=== PATIENT | female | born 1945 | race Caucasian/White ===

== ENCOUNTER 2017-02-02 20:09 | Emergency (ER) | payer MEDICARE ==
[~2017-02-02] VITALS: Ht 152.4 cm; Wt 97.8 kg
[~2017-02-02 20:09] MED LIST: ADVAIR DISK1 IN; ADVAIR HF1 IN; ADVAIR HFA IN; AZITHROMYCIN500 MG OR; B12-ACTIVE1 MG PO; CIPROFLOXACN500 MG PO; DILAUDID 2MG2 MG/TA1 PO; DIOVAN160 MG PO; DUONEB IN; HYDROMET1 ML OR; IMODIUM2 MG PO; KRILL OIL300 MG PO; LOSARTAN POT50 MG PO; MACRODANTIN100 MG PO; MEDDOSEPAK PO; METFORMIN500 MG PO; MULT VITAMI1 PO; NAPROXEN500 MG PO; ONE TOUCH ULTRA 50 XX; ONE TOUCH ULTRA LANC XX; PREDNISONE1 MG OR; PREDNISONE20 MG PO; SPIRIVA HANDIHALER INHW/SPAC; TESSALON PER100 MG PO; TESSALON PERLE100 MG PO; ZITHROMAX250 MG PO; ZITHROMAX500 MG PO; ZPAK PO; [UNRECOGNIZED DRUG - SUPPLY] XX; [UNRECOGNIZED DRUG - SUPPLY] XX
[2017-02-02] MEDS ORDERED: METFORMIN500 M1 PO (20:30)
[2017-02-02] MEDS ORDERED: MACROBID100 MG PO (20:50)
[2017-02-02 21:03] LABS: HEMATOCRIT 37.9 % (37.0-47.0); HEMOGLOBIN 12.8 g/dl (12.0-16.0); IMMATURE GRANULOCYTES 0.4 % (0.0-1.0); MEAN CELL VOLUME 97.7 fL CALC (80.0-100.0); MEAN CORPUSCULAR HGB CONC 33.8 g/L CALC (32.0-36.0); NEUT# 5.94 thou/uL (2.00-7.15); RED BLOOD COUNT 3.88 mill/uL (4.20-5.60); RED CELL DISTRI WIDTH 12.2 % (11.5-15.5)
[2017-02-02 21:07] LABS: URINE BILIRUBIN - DIPSTICK NEGATIVE (NEGATIVE); URINE BLOOD DIPSTICK TRACE-INTACT (NEGATIVE); URINE CLARITY CLEAR; URINE COLOR YELLOW; URINE GLUCOSE - DIPSTICK 250 mg/dL (NEGATIVE); URINE KETONE NEGATIVE (NEGATIVE); URINE LEUK ESTERASE NEGATIVE (NEGATIVE); URINE NITRITE - DIPSTICK NEGATIVE (Negative); URINE PH 5.5 (4.5-8.0); URINE PROTEIN - DIPSTICK TRACE mg/dL (NEG-TRACE); URINE SPECIFIC GRAVITY 1.025; URINE UROBILINOGEN - DIPSTICK 0.2 E.U./dL (0.2)
[2017-02-02 21:29] LABS: ALBUMIN 3.8 g/dL (3.2-5.0); ALKALINE PHOSPHATASE 63 u/l (38-126); ANION GAP 16 (6-22 (CALC)); BILIRUBIN, TOTAL 0.4 mg/dL (0.0-1.4); BUN 16 mg/dL (8-23); BUN/CREATININE RATIO 20 (12-20 (CALC)); CALCIUM 9.8 mg/dL (8.4-10.2); CARBON DIOXIDE 25 mmol/l (22-30); CHLORIDE 101 mmol/l (95-108); CREATININE 0.8 mg/dL (0.5-1.0); GFR > 60 ML/MIN (>=60 (CALC)); GFR FOR AFR.AMER. > 60 ML/MIN (>=60 (CALC)); GLUCOSE 245 mg/dL (82-115); POTASSIUM 4.1 mmol/l (3.5-5.1); SGOT/AST 29 u/l (9-36); SGPT/ALT 49 u/l (11-66); SODIUM 138 mmol/l (137-146); TOTAL PROTEIN 6.4 g/dL (6.3-8.2)
[2017-02-02 22:42] VITALS: BP 153/66
== END 2017-02-02 22:47 | disposition home or self-care (01) ==
LOC: ED 20:09
PROVIDERS: Emergency Medicine
DX: R50.82 Postprocedural fever (principal); I10 Essential (primary) hypertension; E11.9 Type 2 diabetes mellitus without complications

== ENCOUNTER 2018-10-25 21:53 | Emergency (ER) | payer MEDICARE ==
[~2018-10-25] VITALS: Ht 154.9 cm; Wt 92.7 kg
[~2018-10-25 21:53] MED LIST changes: +MACROBID100 MG PO; +METFORMIN500 M1 PO
[2018-10-25 22:25] LABS: HEMATOCRIT 41.2 % (37.0-47.0); HEMOGLOBIN 13.9 g/dl (12.0-16.0); IMMATURE GRANULOCYTES 0.3 % (0.0-5.0); MEAN CELL VOLUME 99.3 fL CALC (80.0-100.0); MEAN CORPUSCULAR HGB 33.5 pG CALC (26.0-32.0); MEAN CORPUSCULAR HGB CONC 33.7 g/L CALC (32.0-36.0); NEUT# 3.53 thou/uL (2.00-7.15); RED BLOOD COUNT 4.15 mill/uL (4.20-5.60); RED CELL DISTRI WIDTH 12.3 % (11.5-15.5)
[2018-10-25] MEDS ORDERED: FEMARA2.5 MG PO (22:27)
[2018-10-25] MEDS ORDERED: LOSARTAN POT50 MG PO (22:27)
[2018-10-25] MEDS ORDERED: METFORMIN HCL850 MG PO (22:28)
[2018-10-25] MEDS ORDERED: FLONASE AL50 MCG/ACT IN (22:29)
[2018-10-25] MEDS ORDERED: DUONEB IN (22:29)
[2018-10-25 22:46] LABS: ALBUMIN 4.5 g/dL (3.2-5.0); ALKALINE PHOSPHATASE 71 u/l (38-126); ANION GAP 15 (6-22 (CALC)); BILIRUBIN, TOTAL 0.5 mg/dL (0.0-1.4); BUN 14 mg/dL (8-23); BUN/CREATININE RATIO 19 (12-20 (CALC)); CARBON DIOXIDE 25 mmol/l (22-30); CHLORIDE 102 mmol/l (95-108); CREATININE 0.7 mg/dL (0.5-1.0); GFR > 60 ML/MIN (>=60 (CALC)); GFR FOR AFR.AMER. > 60 ML/MIN (>=60 (CALC)); POTASSIUM 3.9 mmol/l (3.5-5.1); SGOT/AST 41 u/l (9-36); SODIUM 139 mmol/l (137-146); TOTAL PROTEIN 7.6 g/dL (6.3-8.2)
[2018-10-25 22:59] LABS: MYOGLOBIN 34 ng/mL (0 - 62)
[2018-10-25 23:08] LABS: URINE BILIRUBIN - DIPSTICK NEGATIVE (NEGATIVE); URINE BLOOD DIPSTICK NEGATIVE (NEGATIVE); URINE COLOR YELLOW; URINE GLUCOSE - DIPSTICK NEGATIVE (NEGATIVE); URINE KETONE NEGATIVE (NEGATIVE); URINE LEUK ESTERASE NEGATIVE (NEGATIVE); URINE NITRITE - DIPSTICK NEGATIVE (Negative); URINE PROTEIN - DIPSTICK NEGATIVE (NEG-TRACE); URINE SPECIFIC GRAVITY 1.015; URINE UROBILINOGEN - DIPSTICK 0.2 E.U./dL (0.2)
[2018-10-26 00:37] VITALS: BP 175/77
== END 2018-10-26 00:45 | disposition home or self-care (01) ==
LOC: ED 21:53
PROVIDERS: Emergency Medicine
DX: I10 Essential (primary) hypertension (principal); R42 Dizziness and giddiness; R51 Headache; R50.9 Fever, unspecified; H53.8 Other visual disturbances

== ENCOUNTER → 2018-11-18 | Outpatient (REF) | payer MEDICARE ==
[~2018-11-18] MED LIST changes: +FEMARA2.5 MG PO; +FLONASE AL50 MCG/ACT IN; +METFORMIN HCL850 MG PO
[2018-11-18 11:14] LABS: HEMATOCRIT 39.1 % (37.0-47.0); HEMOGLOBIN 12.9 g/dl (12.0-16.0); MEAN CORPUSCULAR HGB 33.3 pG CALC (26.0-32.0); RED BLOOD COUNT 3.87 mill/uL (4.20-5.60); RED CELL DISTRI WIDTH 12.8 % (11.5-15.5)
[2018-11-18 11:33] LABS: ALBUMIN 4.2 g/dL (3.2-5.0); ALKALINE PHOSPHATASE 65 u/l (38-126); ANION GAP 14 (6-22 (CALC)); BILIRUBIN, TOTAL 0.5 mg/dL (0.0-1.4); BUN 14 mg/dL (8-23); BUN/CREATININE RATIO 20 (12-20 (CALC)); CALCULATED LDLCHOLESTEROL 104 mg/dL (62-129 (CALC)); CARBON DIOXIDE 27 mmol/l (22-30); CHLORIDE 104 mmol/l (95-108); CHOLESTEROL HDL RATIO 2.9 (<4.4 (CALC)); CREATININE 0.7 mg/dL (0.5-1.0); GFR > 60 ML/MIN (>=60 (CALC)); GFR FOR AFR.AMER. > 60 ML/MIN (>=60 (CALC)); HDL CHOLESTEROL 69 mg/dL (>=40); POTASSIUM 4.4 mmol/l (3.5-5.1); SGOT/AST 30 u/l (9-36); SODIUM 140 mmol/l (137-146); TOTAL CHOLESTEROL 200 mg/dl (0-199); TOTAL PROTEIN 6.9 g/dL (6.3-8.2); TOTAL TRIGLYCERIDES 131 mg/dl (30-149); VLDL CHOLESTROL 26 mg/dl (0-48 (CALC))
[2018-11-18 12:05] LABS: TSH, 3RD GENERATION 0.91 uIU/mL (0.47 - 4.68)
== END | disposition home or self-care (01) ==
LOC: LAB 10:11
PROVIDERS: ATTEND Nurse Practitioner
DX: E11.9 Type 2 diabetes mellitus without complications (principal); I10 Essential (primary) hypertension

== ENCOUNTER → 2018-11-21 | Outpatient (REF) | payer MEDICARE | END | disposition home or self-care (01) | LOC: DI 15:13 | PROVIDERS: ATTEND Orthopaedic Surgery | DX: M25.561 Pain in right knee (principal); M17.11 Unilateral primary osteoarthritis, right knee ==

== ENCOUNTER 2019-07-11 16:01 | Observation (INO) | payer MEDICARE ==
[~2019-07-11] VITALS: Ht 154.9 cm; Wt 90.7 kg
[2019-07-11] MEDS ORDERED: PROAIR HFA108 MCG/AC IN (17:19)
[2019-07-11] MEDS ORDERED: NORVASC5 M1 PO (17:20)
[2019-07-11 17:27] LABS: HEMATOCRIT 42.7 % (37.0-47.0); HEMOGLOBIN 14.1 g/dl (12.0-16.0); IMMATURE GRANULOCYTES 0.2 % (0.0-5.0); MEAN CELL VOLUME 100.5 fL CALC (80.0-100.0); MEAN CORPUSCULAR HGB 33.2 pG CALC (26.0-32.0); NEUT# 3.81 thou/uL (2.00-7.15); RED BLOOD COUNT 4.25 mill/uL (4.20-5.60); RED CELL DISTRI WIDTH 12.8 % (11.5-15.5)
[2019-07-11 17:51] LABS: ANION GAP 13 (6-22 (CALC)); BUN 11 mg/dL (8-23); BUN/CREATININE RATIO 16 (12-20 (CALC)); CARBON DIOXIDE 27 mmol/l (22-30); CHLORIDE 103 mmol/l (95-108); CREATININE 0.7 mg/dL (0.5-1.0); GFR > 60 ML/MIN (>=60 (CALC)); GFR FOR AFR.AMER. > 60 ML/MIN (>=60 (CALC)); POTASSIUM 4.2 mmol/l (3.5-5.1); SODIUM 139 mmol/l (137-146)
[2019-07-11 19:55] LABS: URINE BILIRUBIN - DIPSTICK NEGATIVE (NEGATIVE); URINE BLOOD DIPSTICK NEGATIVE (NEGATIVE); URINE COLOR YELLOW; URINE GLUCOSE - DIPSTICK 100 mg/dL (NEGATIVE); URINE KETONE NEGATIVE (NEGATIVE); URINE LEUK ESTERASE NEGATIVE (NEGATIVE); URINE NITRITE - DIPSTICK NEGATIVE (Negative); URINE PROTEIN - DIPSTICK NEGATIVE (NEG-TRACE); URINE SPECIFIC GRAVITY 1.025; URINE UROBILINOGEN - DIPSTICK 0.2 E.U./dL (0.2)
[2019-07-11 20:10] VITALS: BP 178/73
[2019-07-12 01:15] VITALS: BP 159/78
[2019-07-12 04:15] VITALS: BP 113/63
[2019-07-12 08:55] VITALS: BP 113/63
[2019-07-12] MEDS ORDERED: OMNICEF300 MG PO (09:02)
[2019-07-12] MEDS ORDERED: PREDNISONE10 MG PO (09:02)
[2019-07-12] MEDS ORDERED: ZITHROMAX500 MG PO (09:10)
== END 2019-07-12 12:50 | disposition home or self-care (01) ==
LOC: ED 16:01 → ED-I 17:51 → ED 19:24 → ICU 19:25
PROVIDERS: Family Medicine; ADMIT Internal Medicine; ATTEND Internal Medicine
DX: J44.1 Chronic obstructive pulmonary disease with (acute) exacerbation (principal); J44.0 Chronic obstructive pulmonary disease with (acute) lower respiratory infection; J18.9 Pneumonia, unspecified organism; E11.9 Type 2 diabetes mellitus without complications; I10 Essential (primary) hypertension; Z79.84 Long term (current) use of oral hypoglycemic drugs
CPT/HCPCS: J1650

== ENCOUNTER 2019-08-10 17:08 | Emergency (ER) | payer MEDICARE ==
[~2019-08-10] VITALS: Ht 154.9 cm; Wt 81.0 kg
[~2019-08-10 17:08] MED LIST changes: +NORVASC5 M1 PO; +OMNICEF300 MG PO; +PREDNISONE10 MG PO; +PROAIR HFA108 MCG/AC IN
[2019-08-10 18:57] LABS: HEMATOCRIT 37.4 % (37.0-47.0); HEMOGLOBIN 12.5 g/dl (12.0-16.0); IMMATURE GRANULOCYTES 0.3 % (0.0-5.0); MEAN CORPUSCULAR HGB 33.4 pG CALC (26.0-32.0); MEAN CORPUSCULAR HGB CONC 33.4 g/L CALC (32.0-36.0); NEUT# 3.16 thou/uL (2.00-7.15); RED BLOOD COUNT 3.74 mill/uL (4.20-5.60); RED CELL DISTRI WIDTH 12.9 % (11.5-15.5)
[2019-08-10 19:09] LABS: ANION GAP 13 (6-22 (CALC)); BUN 12 mg/dL (8-23); BUN/CREATININE RATIO 23 (12-20 (CALC)); CARBON DIOXIDE 25 mmol/l (22-30); CHLORIDE 105 mmol/l (95-108); CREATININE 0.5 mg/dL (0.5-1.0); GFR > 60 ML/MIN (>=60 (CALC)); GFR FOR AFR.AMER. > 60 ML/MIN (>=60 (CALC)); POTASSIUM 3.9 mmol/l (3.5-5.1); SODIUM 139 mmol/l (137-146)
[2019-08-10 19:13] LABS: ACT PARTIAL THROMBO TIME 26.7 SECONDS (20.0-32.5); PROTHROMBIN TIME 10.7 SECONDS (9.0-12.5)
[2019-08-10 19:56] VITALS: BP 168/86
== END 2019-08-10 19:55 | disposition home or self-care (01) ==
LOC: ED 17:08
PROVIDERS: Family Medicine
DX: I87.2 Venous insufficiency (chronic) (peripheral) (principal); E11.9 Type 2 diabetes mellitus without complications; I10 Essential (primary) hypertension; J44.9 Chronic obstructive pulmonary disease, unspecified; Z79.84 Long term (current) use of oral hypoglycemic drugs

== ENCOUNTER 2021-03-17 13:05 | Observation (INO) | payer MEDICARE ==
[~2021-03-17] VITALS: Ht 154.9 cm; Wt 94.0 kg
--- NOTE | 2021-03-17 13:07 | NUR ---
PT TO ROOM VIa stretcher for bedside triage.
--- NOTE | 2021-03-17 13:12 | NUR ---
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 EKG COMPLETED AND MLP NOTIFIED.
[2021-03-17 14:23] LABS: HEMATOCRIT 43.6 % (37.0-47.0); HEMOGLOBIN 14.4 g/dl (12.0-16.0); IMMATURE GRANULOCYTES 0.4 % (0.0-5.0); MEAN CELL VOLUME 99.1 fL CALC (80.0-100.0); MEAN CORPUSCULAR HGB 32.7 pG CALC (26.0-32.0); NEUT# 4.23 thou/uL (2.00-7.15); RED BLOOD COUNT 4.4 mill/uL (4.20-5.60); RED CELL DISTRI WIDTH 12.4 % (11.5-15.5)
[2021-03-17] MEDS ORDERED: METFORMIN500 M2 PO (14:26)
[2021-03-17] MEDS ORDERED: ESCITALOPRAM OX10 MG PO (14:27)
[2021-03-17] MEDS ORDERED: FLONASE AL50 MCG/ACT NAB (14:29)
[2021-03-17 14:37] LABS: ALBUMIN 3.9 g/dL (3.2-5.0); ALKALINE PHOSPHATASE 74 u/l (38-126); AMYLASE 57 u/l (30-110); ANION GAP 16 (6-22 (CALC)); BILIRUBIN, TOTAL 0.8 mg/dL (0.0-1.4); BUN 18 mg/dL (8-23); BUN/CREATININE RATIO 19 (12-20 (CALC)); CARBON DIOXIDE 25 mmol/l (22-30); CHLORIDE 97 mmol/l (95-108); CREATININE 0.9 mg/dL (0.5-1.0); GFR > 60 ML/MIN (>=60 (CALC)); GFR FOR AFR.AMER. > 60 ML/MIN (>=60 (CALC)); LIPASE 77 u/l (23-300); POTASSIUM 3.8 mmol/l (3.5-5.1); SODIUM 134 mmol/l (137-146)
[2021-03-17 14:39] LABS: ACT PARTIAL THROMBO TIME 26.5 SECONDS (20.0-32.5); INTERNATIONAL NORMALIZED RATIO 1.1 RATIO (0.7-1.3); PROTHROMBIN TIME 11.2 SECONDS (9.0-12.5)
[2021-03-17 14:51] LABS: SGOT/AST 64 u/l (9-36)
[2021-03-17 15:21] LABS: URINE BLOOD DIPSTICK TRACE-INTACT (NEGATIVE); URINE COLOR YELLOW; URINE GLUCOSE - DIPSTICK NEGATIVE (NEGATIVE); URINE KETONE TRACE mg/dL (NEGATIVE); URINE LEUK ESTERASE TRACE (NEGATIVE); URINE PH 5.5 (4.5-8.0); URINE PROTEIN - DIPSTICK 100 mg/dL (NEG-TRACE); URINE SPECIFIC GRAVITY 1.025; URINE UROBILINOGEN - DIPSTICK 0.2 E.U./dL (0.2)
[2021-03-17 15:22] LABS: URINE BILIRUBIN - DIPSTICK SMALL (NEGATIVE)
[2021-03-17 15:23] LABS: URINE NITRITE - DIPSTICK NEGATIVE (Negative)
--- NOTE | 2021-03-17 15:26 | NUR ---
PT RESTING IN BED, HR AFIB ON MONITOR
[2021-03-17 15:29] LABS: URINE RBC 0-2 RBC/hpf (0-5); URINE SQUAMOUS EPITHELIAL CELL FEW EPI/hpf (0-FEW)
--- NOTE | 2021-03-17 16:45 | NUR ---
PT ANXIOUS, DOES NOT WANT TO STAY IN THE HOSPITAL, AGGRAVATED. COMFORTED PT AND VERBALIZED WHY SHE NEEDED TO STAY, PT AGREES AND UNDERSTANDS
--- NOTE | 2021-03-17 20:06 | NUR ---
PT VERY ANXIOUS AND AGGITATED, WANTS TO LEAVE, JL CEDEÑO RN NOTIFIED AND IN TO TALK TO PT
--- NOTE | 2021-03-17 20:20 | NUR ---
PT CAME BACK AND DECIDED TO STAY IN ICU TONIGHT
--- NOTE | 2021-03-17 20:25 | NUR ---
75 yr old white female admitted to icu 5 per wc from er. amb self to bathroom then to bed. no c/o n/v or diarrhea. bed weight obtained. 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 #20 lac started lac x1 attempt per delbert laguerre rn. history obtained per pt & er record. oriented to room. fall precautions initiated.
[2021-03-17 20:30] VITALS: BP 110/51
[2021-03-17 20:45] VITALS: BP 99/56
[2021-03-17 21:00] VITALS: BP 107/61
--- NOTE | 2021-03-17 21:00 | NUR ---
supper meal given per request.
[2021-03-17 21:15] VITALS: BP 90/42
[2021-03-17 21:30] VITALS: BP 117/56
[2021-03-17 22:00] VITALS: BP 111/54
--- NOTE | 2021-03-17 22:00 | NUR ---
watching tv. property assessment monitor shows a fib hr 116.
[2021-03-18] VITALS (8 sets, daily range): BP systolic 104–142; BP diastolic 51–70
--- NOTE | 2021-03-18 00:13 | NUR ---
lab here. blood drawn.
--- NOTE | 2021-03-18 02:00 | NUR ---
resting quietly. resps even & unlabored. no apparent distress. dynamo tender shows a fib hr 84.
--- NOTE | 2021-03-18 04:00 | NUR ---
eyes closed. no distress. quality assurance monitor body shows a fib hr 96.
--- NOTE | 2021-03-18 05:25 | NUR ---
lab here. blood drawn.
[2021-03-18 05:43] LABS: HEMATOCRIT 39.7 % (37.0-47.0); HEMOGLOBIN 13.2 g/dl (12.0-16.0); MEAN CORPUSCULAR HGB 32.9 pG CALC (26.0-32.0); MEAN CORPUSCULAR HGB CONC 33.2 g/dL CAL (32.0-36.0); RED BLOOD COUNT 4.01 mill/uL (4.20-5.60); RED CELL DISTRI WIDTH 12.6 % (11.5-15.5)
[2021-03-18 05:58] LABS: ANION GAP 12 (6-22 (CALC)); BUN 17 mg/dL (8-23); BUN/CREATININE RATIO 22 (12-20 (CALC)); CALCULATED LDLCHOLESTEROL 92 mg/dL (62-129 (CALC)); CARBON DIOXIDE 23 mmol/l (22-30); CHLORIDE 103 mmol/l (95-108); CHOLESTEROL HDL RATIO 4.9 (<4.4 (CALC)); CREATININE 0.8 mg/dL (0.5-1.0); GFR > 60 ML/MIN (>=60 (CALC)); GFR FOR AFR.AMER. > 60 ML/MIN (>=60 (CALC)); HDL CHOLESTEROL 32 mg/dL (>=40); MAGNESIUM 1.8 mg/dL (1.6-2.3); POTASSIUM 3.7 mmol/l (3.5-5.1); SODIUM 135 mmol/l (137-146); TOTAL CHOLESTEROL 154 mg/dl (0-199); TOTAL TRIGLYCERIDES 149 mg/dl (30-149); VLDL CHOLESTROL 30 mg/dl (0-48 (CALC))
--- NOTE | 2021-03-18 07:34 | NUR ---
PT SEEN ALERT, ORIENTED X 3. MONITOR CONTINUES TO SHOW AFIB, RATE 85-115. PT DENIES HISTORY OF AFIB. BREAKFAST TRAY SERVED. FAN PROVIDED PT WOKE UP SWEATING. NO DISTRESS, NO N/V/D.
--- NOTE | 2021-03-18 10:00 | NUR ---
PT GOWN CHANGED PER SWEATING. PT IS AMBULATORY TO BR WITH ASSIST UNHOOKING MONITORS. PT USES CANE, RESULTS IN STEADY GAIT. DR WANG HAS SEEN PT, NEW ORDERS RECEIVED.
--- NOTE | 2021-03-18 16:07 | NUR ---
PT'S LARRY AT BEDSIDE AT THIS TIME FOR VISIT. PT REMAINS ATRIAL FIBRILLATION WITH BETTER CONTROL OF RATE NOW, 80-100.
--- NOTE | 2021-03-18 17:27 | NUR ---
PT CONTINUES AMBULATORY IN ROOM, USES BR PRN. PT UP IN CHAIR AT THIS TIME EATING DINNER. NO COMPLAINTS, NO DISTRESS.
--- NOTE | 2021-03-18 20:00 | NUR ---
sitting in bedside chair using cell phone. no c/o. telemetry monitor shows a fib pvcs hr 84. #20 lac saline lock. po fluids taken well. voids per bathroom. fall precautions cont.
--- NOTE | 2021-03-18 22:00 | NUR ---
amb self to br then to bed. navneet well. no distress.
[2021-03-19 00:01] VITALS: BP 91/49
--- NOTE | 2021-03-19 00:01 | NUR ---
eyes closed. no distress. 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
[2021-03-19 02:00] VITALS: BP 93/51
--- NOTE | 2021-03-19 02:00 | NUR ---
resting quietly. resps even & unlabored. cardiac moitor shows a fib pvcs hr 78.
[2021-03-19 04:00] VITALS: BP 98/54
--- NOTE | 2021-03-19 04:00 | NUR ---
eyes closed. no distress. monitor tech shows a fib pvcs hr 80.
--- NOTE | 2021-03-19 05:54 | NUR ---
lab here. blood drawn.
[2021-03-19 06:04] LABS: HEMATOCRIT 39.9 % (37.0-47.0); HEMOGLOBIN 13.1 g/dl (12.0-16.0); MEAN CELL VOLUME 99.8 fL CALC (80.0-100.0); MEAN CORPUSCULAR HGB 32.8 pG CALC (26.0-32.0); MEAN CORPUSCULAR HGB CONC 32.8 g/dL CAL (32.0-36.0); RED CELL DISTRI WIDTH 12.8 % (11.5-15.5)
[2021-03-19 06:21] LABS: ANION GAP 11 (6-22 (CALC)); BUN 19 mg/dL (8-23); BUN/CREATININE RATIO 27 (12-20 (CALC)); CARBON DIOXIDE 27 mmol/l (22-30); CHLORIDE 103 mmol/l (95-108); CREATININE 0.7 mg/dL (0.5-1.0); GFR > 60 ML/MIN (>=60 (CALC)); GFR FOR AFR.AMER. > 60 ML/MIN (>=60 (CALC)); MAGNESIUM 1.7 mg/dL (1.6-2.3); POTASSIUM 3.8 mmol/l (3.5-5.1); SODIUM 137 mmol/l (137-146)
--- NOTE | 2021-03-19 08:00 | NUR ---
PT SEEN AWAKE, ALERT, ORIENTED X 3. LUNGS CLEAR, RA. MONITOR CONTINUES TO SHOW AFIB WITH HR 80-120. PT ASYMPTOMATIC WHEN RATE ACCELERATES. PT HOPES FOR DISCHARGE TO HOME TODAY, WAITS ON DR WANG TO ARRIVE.
[2021-03-19 10:57] VITALS: BP 115/66
[2021-03-19] MEDS ORDERED: XARELTO20 MG PO (10:59)
[2021-03-19] MEDS ORDERED: CARDIZEM CD120 MG PO (10:59)
--- NOTE | 2021-03-19 12:06 | NUR ---
PT SEEN BY DR WANG THIS MORNING, WILL DISCHARGE TO HOME THIS AFTERNOON, 2-3 HOURS AFTER RECEIVING CARDIZEM LONG-ACTING DOSE. PT REMAINS STABLE, SITTING IN CHAIR, SOMETIMES NAPPING, AMBULATORY TO BR NEEDED.
--- NOTE | 2021-03-19 14:19 | NUR ---
PT HAS BEEN DISCHARGED TO HOME. PT VERBALIZED UNDERSTANDING OF DC INSTRUCTIONS, TAKEN BY WHEELCHAIR TO VEHICLE. PT LEAVES [facility] IN STABLE CONDITION.
== END 2021-03-19 14:15 | disposition home or self-care (01) ==
LOC: ED 13:05 → ED-I 15:31 → ED 15:50 → ICU 15:51 → ED 15:51 → ICU 03-19 14:15
PROVIDERS: Nurse Practitioner; ADMIT Internal Medicine; ATTEND Internal Medicine
DX: I48.91 Unspecified atrial fibrillation (principal); R11.2 Nausea with vomiting, unspecified; R19.7 Diarrhea, unspecified; I10 Essential (primary) hypertension; E11.9 Type 2 diabetes mellitus without complications; J44.9 Chronic obstructive pulmonary disease, unspecified; R79.89 Other specified abnormal findings of blood chemistry; Z87.442 Personal history of urinary calculi; Z85.3 Personal history of malignant neoplasm of breast; Z79.84 Long term (current) use of oral hypoglycemic drugs; Z20.822 Contact with and (suspected) exposure to COVID-19
CPT/HCPCS: J1650